=== PATIENT | female | born 1990 | race Caucasian/White ===

== ENCOUNTER 2022-02-25 16:10 | Emergency (ER) | payer SELFPAY ==
--- NOTE | 2022-02-25 16:09 | ECG_ITS ---
Measurements Intervals [place] Rate: 97 P: 41 MO: 131 QRS: 73 QRSD: 77 T: 63 QT: 344 QTc: 438 Interpretive Statements SINUS RHYTHM NORMAL ECG NO PREVIOUS ECG AVAILABLE FOR COMPARISON Electronically Signed On 03-03-2022 16:41:08 CDT by Dami King M.D.
[2022-02-25 16:10] VITALS: BP 116/98; PULSE 94; RESP 22; TEMP 36.7; O2SAT 96
--- NOTE | 2022-02-25 16:24 | ED.ANXIETY ---
HPI - Anxiety General Chief Complaint: Anxiety Stated Complaint: chest pressure/meth Time Seen by Provider: 02/25/22 16:12 Source: patient and RN notes reviewed Mode of arrival: ambulatory Limitations: no limitations History of Present Illness HPI narrative: This is a 31 year old female with history of methamphetamine use and anxiety who presents for evaluation of panic attack. PAtient states she has been having issues with anxiety. She states she had just gotten high on methamphetamine and then she was arrested on a warrant. She states she started to have a panic attack due to the arrest and drug use. She reported having difficulty breathing, bilateral hand tingling, and chest pain. She also states she had a headache. She was released by the police and she states her symptoms have resolved. She states she is ready for discharge home. She does not want any further evaluation. Related Data Allergies Allergy/AdvReac Type Severity Reaction Status Date / Time No Known Allergies Allergy Unverified 05/07/13 17:18 Review of Systems Review of Systems: All systems reviewed & are unremarkable except as noted in HPI and below PMFSH Past Medical History Medical History (Updated 02/25/22 @ 17:05 by Mya Mota MD) Anxiety Methamphetamine use Migraine Surgical History Surgical History (Updated 02/25/22 @ 17:02 by Mya Mota MD) No pertinent past surgical history Social History Social History (Updated 02/25/22 @ 17:02 by Mya Mota MD) Smoking packs per day: 0.5 Smoking cigarettes per day: 10.0 Smoking status: Current every day smoker Substance use type: methamphetamine Exam Const: General: no acute distress and alert Orientation/consciousness: patient oriented x3 Eyes: Pupils: Equal, round and reactive pupils present EOM: EOMs intact bilaterally Chest: Chest palpation & inspection: normal inspection of the chest Resp: Effort & Inspection: normal respiratory effort and no retractions Auscultation: clear to auscultation bilaterally Cardio: Rate: regular rate Rhythm: regular rhythm Heart sounds: no murmurs GI: GI Palp: Yes Soft to palpation, No Tenderness to palpation present (GI) and No Guarding due to palpation present (GI) Auscultation: normal bowel sounds Skin: General skin exam: normal color Rashes: no rashes Neuro: General: patient oriented x3, moves all extremities and CN's II-XI intact bilaterally Extrem: General: no pedal edema Psych: Mental Status: mental status grossly normal Affect: normal affect Course Reevaluation(s) Reevaluation #1: Patient denies any chest pain or shortness of breath. Date: 02/25/22 Time: 17:03 Vital Signs Vital signs: Vital Signs Temperature 98.1 F 02/25/22 16:10 Pulse Rate 94 02/25/22 16:10 Respiratory Rate 22 H 02/25/22 16:10 Blood Pressure 116/98 H 02/25/22 16:10 Pulse Oximetry 96 02/25/22 16:10 Temperature 98.1 F 02/25/22 16:10 Pulse Rate 94 02/25/22 16:10 Respiratory Rate 22 H 02/25/22 16:10 Blood Pressure 116/98 H 02/25/22 16:10 Pulse Oximetry 96 02/25/22 16:10 MDM - Anxiety ECG Data EKG #1: Attestation: I personally reviewed and interpreted this ECG as follows: ECG completion date: 02/25/22 ECG completion time: 16:09 EKG Interpretation: normal rate (97), sinus rhythm, no ST changes and NL axis Discharge Plan Discharge Clinical Impression: Acute anxiety, Methamphetamine use Patient Disposition: Home, Self-Care Condition: Stable Instructions: Antibiotic Form, Methamphetamine Use Disorder (ED), Anxiety (ED) Additional Instructions: Please get established with primary care provider for assistance with your anxiety and drug use. You should increase your fluid intake. Follow-up/Referrals: Kenneth Nails MD [Physician] - PHYSICIAN,RN GYN [Primary Care Provider] -
== END 2022-02-25 17:12 | disposition home or self-care (01) ==
PROVIDERS: Emergency Provider General Practice
DX: F41.9 Anxiety disorder, unspecified (principal); F15.90 Other stimulant use, unspecified, uncomplicated; F17.210 Nicotine dependence, cigarettes, uncomplicated
CPT/HCPCS: 93005; 99281